=== PATIENT | male | born 1995 | race Two or more races ===

== ENCOUNTER 2018-10-25 00:20 | Emergency (ER) | payer OTHER ==
[~2018-10-25] VITALS: Ht 170.2 cm; Wt 104.3 kg
--- NOTE | 2018-10-25 00:35 | NUR ---
PT BIB C/C MIDSTERNAL INTERMITTENT CHEST PAIN, NONRADIATING. PT STATES "IT FEELS LIKE ITS CLOSING IN". PT AOX4. NAD NOTED. RESP EVEN AND UNLABORED. PT ON MONITOR IN BED 11 WITH AT BEDSIDE. WILL CONTINUE TO MONITOR.
--- NOTE | 2018-10-25 00:58 | NUR ---
BLOOD DRAWN AND GIVEN TO LAB
[2018-10-25] MEDS ORDERED: KETOROLAC TROMETHAMINE INJ 30 MG/ML VIAL IV ONE (01:00)
[2018-10-25] MEDS ORDERED: IV NS 0.9% 1,000 ML BAG IV ONE (01:00)
[2018-10-25] MEDS ORDERED: KETOROLAC TROMETHAMINE INJ 30 MG/ML VIAL ONE (01:00)
[2018-10-25 01:06] LABS: BASOPHILS % (AUTO) 0.3 % (0.0-2.0); EOSINOPHILS % (AUTO) 1.2 % (0.0-6.0); HEMATOCRIT 44 % (39-51); HEMOGLOBIN 15.2 g/dL (13.5-17.5); LYMPHOCYTES # (AUTO) 1.7 /CMM (0.8-4.8); LYMPHOCYTES % (AUTO) 24.7 % (20.0-44.0); MEAN CORPUSCULAR HGB CONC 34 g/dl (31.0-36.0); MEAN CORPUSCULAR VOLUME 89 fL (80-96); MONOCYTES # (AUTO) 0.7 /CMM (0.1-1.30); NEUTROPHILS # (AUTO) 4.4 /CMM (1.8-8.9); NEUTROPHILS % (AUTO) 63.8 % (43.0-81.0); PLATELET COUNT (AUTO) 244 /CMM (150-450); WHITE BLOOD COUNT (AUTO) 6.9 K/uL (4.3-11.0)
--- NOTE | 2018-10-25 01:06 | NUR ---
TECH AT BEDSIDE FOR EKG
--- NOTE | 2018-10-25 01:10 | NUR ---
RADIOLOGY AT BEDSIDE FOR XRAY
[2018-10-25 01:21] LABS: ALANINE AMINOTRANSFERASE 35 U/L (12-78); ALKALINE PHOSPHATASE 53 U/L (46-116); ASPARTATE AMINOTRANSFERASE 23 U/L (15-37); BILIRUBIN,DIRECT 0.1 mg/dL (0.0-0.2); BILIRUBIN,TOTAL 0.3 mg/dL (0.2-1.0); CALCIUM, SERUM 6.5 mg/dL (8.5-10.1); CARBON DIOXIDE 20 mmol/L (21-32); CHLORIDE 113 mmol/L (98-107); CREATININE 0.6 mg/dL (0.6-1.3); GLUCOSE 91 mg/dL (74-106); SODIUM SERUM 144 mmol/L (136-145); TOTAL PROTEIN, SERUM 5.6 g/dL (6.4-8.2); UREA NITROGEN, BLOOD 13 mg/dL (7-18)
[2018-10-25 01:22] LABS: D-DIMER 0.19 mg/L(FEU (0.17-0.50); POTASSIUM 2.2 mmol/L (3.5-5.1)
--- NOTE | 2018-10-25 02:05 | NUR ---
PHLEB AT BEDSIDE FOR LAB REDRAW
[2018-10-25 02:16] LABS: MAGNESIUM 2.3 mg/dL (1.8-2.4); POTASSIUM 4.1 mmol/L (3.5-5.1)
[2018-10-25 02:50] VITALS: BP 128/59
--- NOTE | 2018-10-25 03:02 | NUR ---
PT'S MOTHER AT BEDSIDE
--- NOTE | 2018-10-25 03:49 | NUR ---
IV removed. Catheter intact and site benign. Pressure and 4x4 applied to site. No bleeding noted.Patient discharged to home in stable condition. Written and verbal after care instructions given. Patient verbalizes understanding of instruction. PT AMBULATORY WITH STEADY GAIT ACCOMPANIED BY MOTHER AND .
== END 2018-10-25 03:59 | disposition home or self-care (01) ==
LOC: ER 00:24
DX: R07.89 Other chest pain (principal); F10.10 Alcohol abuse, uncomplicated; E86.0 Dehydration; Y90.9 Presence of alcohol in blood, level not specified
CPT/HCPCS: 36415; 71045-TC; 80048-TC; 80076-TC; 83690-TC; 83735-TC; 84132-TC; 84484-TC; 85025-TC; 85378-TC; 85730-TC; J1885; J7030